=== PATIENT | male | born 1955 | race Caucasian/White ===

== ENCOUNTER 2017-01-22 12:53 | Emergency (ER) | payer BC ==
--- NOTE | 2017-01-22 13:51 | ER PHYSICIAN DOCUMENTATION ---
Physician Documentation [facility] Name:Abdirahman Sprague Age:61 yrs Sex:Male :1955 Arrival Date:01/22/2017 Time:12:53 Bed1 Private MD: Hal Ramirez Disposition: 01/22/17 13:44 Discharged to Home/Self Care. Impression: Acute Sinusitis. - Condition is Good. - Discharge Instructions: SINUSITIS, Abx Tx. - Prescriptions for Augmentin 875- 125 mg Oral - take 1 tablet by ORAL route every 12 hours for 14 days; 28 tablet. - Medical Reconciliation form form. - Follow up: Private Physician; When: As needed; Reason: Worsening of condition. - Problem is new. - Symptoms are unchanged. HPI: 01/22 13:42 This 61 yrs old Male presents to ER via Private Vehicle with complaints of sc Cough, Sinus Pain. 13:42 The patient or guardian reports cough, described as mild, with no sputum. Onset: The sc symptom(s)/episode began/occurred 3 week(s) ago. Severity of symptoms: At their worst the symptoms were moderate. Associated signs and symptoms: Pertinent positives: rhinorrhea. The patient has experienced similar episodes in the past, chronically, 3 sinus surgeries. Historical: - Allergies: No known drug Allergies; - Home Meds: 1. Simvastatin Oral 2. z-pack 3. Vitamin C Oral 4. Vitamin D Oral 5. Aspirin Oral 6. larantadine - PMHx: SINUSITIS; HIGH CHOLESTEROL; - Tetanus: < 10 years. - Ebola Screening: : Patient denies exposure to infectious person. Patient denies travel to an Ebola-affected area in the 21 days before illness onset. . - Social history: Smoking status: Patient states was never smoker of tobacco. Patient uses alcohol occasionally. Patient/guardian denies using marijuana. ROS: 13:43 Constitutional: Negative for fever, chills, and weight loss. sc Eyes: Negative for injury, pain, redness, and discharge. Cardiovascular: Negative for chest pain, palpitations, and edema. Back: Negative for injury and pain. Skin: Negative for injury, rash, and discoloration. 13:43 Neuro: Negative for headache, weakness, numbness, tingling, and seizure. sc 13:43 ENT: Positive for nasal discharge, sinus congestion, sinus pain. 13:43 Respiratory: Positive for cough. Exam: Constitutional: This is a well developed, well nourished patient who is awake, alert, and in no acute distress. 13:43 Eyes: Pupils equal round and reactive to light, extra-ocular motions intact. Lids and sc lashes normal. Conjunctiva and sclera are non-icteric and not injected. Cornea within normal limits. Periorbital areas with no swelling, redness, or edema. 13:43 ENT: Nose: nasal drainage, and is seen coming from both nares, that is purulent, Posterior pharynx: Tonsils: are normal in appearance, erythema, is not appreciated. 13:43 Respiratory: the patient does not display signs of respiratory distress, Respirations: normal, Breath sounds: are normal. 13:45 Neuro: Orientation: is normal. sc Vital Signs: 13:11 BP 122 / 82; Pulse 92; Resp 16; Temp 98.6; Pulse Ox 90% on R/A; st MDM: 13:28 Patient medically screened. sc 13:44 Differential Diagnosis: Sinusitis Viral Syndrome. Data reviewed: vital signs, nurses sc notes, and as a result, I will discharge patient. Counseling: I had a detailed discussion with the patient and/or guardian regarding: the historical points, exam findings, and any diagnostic results supporting the discharge/admit diagnosis, the need for outpatient follow up, to return to the emergency department if symptoms worsen or persist or if there are any questions or concerns that arise at home. 13:45 ED course: discussed sinus irrigatioins, resuming flonase, dental exam. sc Dispensed Medications: No medications were administered Signatures: Leonarda Juárez, RN Hal Bosotn MD MD az
--- NOTE | 2017-01-22 13:51 | ER NURSING DOCUMENTATION ---
Nurse's Notes [facility] Name:Abdirahman Sprague Age:61 yrs Sex:Male :1955 Arrival Date:01/22/2017 Time:12:53 Bed1 Private MD: Diagnosis:Acute Sinusitis Presentation: 01/22 13:05 Presenting complaint: Patient states: pt has left sided sinus pain. pt has a PRN RX for st a Z-pack to take for sinusitis and he started that however the pain keeps getting worst. Transition of care: Home. 13:05 Method Of Arrival: Private Vehicle st 13:05 Acuity: CONSTANCE 4 st 13:05 Notified ED Physician of Dr. Murphy notified. st Triage Assessment: 13:10 General: Appears in no apparent distress, Behavior is cooperative. Pain: Complains of st pain in left cheek and left jaw. EENT: Respiratory: Breath sounds are clear bilaterally. 13:12 Pain: Pain At worst was 8 out of 10 on a pain scale. Pain began 2-[address] Historical: - Allergies: No known drug Allergies; - Home Meds: 1. Simvastatin Oral 2. z-pack 3. Vitamin C Oral 4. Vitamin D Oral 5. Aspirin Oral 6. larantadine - PMHx: SINUSITIS; HIGH CHOLESTEROL; - Tetanus: < 10 years. - Ebola Screening: : Patient denies exposure to infectious person. Patient denies travel to an Ebola-affected area in the 21 days before illness onset. . - Social history: Smoking status: Patient states was never smoker of tobacco. Patient uses alcohol occasionally. Patient/guardian denies using marijuana. Screenin:12 Infectious Disease Risk None. Abuse screen: Denies threats or abuse. Denies injuries st from another. pt feels safe at home. Nutritional screening: No deficits noted. Vital Signs: 13:11 BP 122 / 82; Pulse 92; Resp 16; Temp 98.6; Pulse Ox 90% on R/A; st ED Course: 12:58 Patient arrived in ED. we 12:58 summer, RN is Primary Nurse. st 13:[address] 13:12 Valuables Remains with patient Patient has correct armband on for positive st identification. Bed in low position. 13:28 Hal Murphy MD is Attending Physician. sc Administered Medications: No medications were administered Outcome: 13:44 Discharge ordered by . az 13:50 Discharged to home ambulatory. 13:50 Condition: stable 13:50 Discharge instructions given to patient, Instructed on discharge instructions, follow up and referral plans. medication usage, Prescriptions given X 1. 13:50 Patient left the ED. 01/23 09:26 Discharge F/U Call: Unable to reach: no answer nf Signatures: Leonarda Juárez RN RN st Friel, Nicole, RN RN nf Chew, Scott, MD MD sc Elder, [place]on we
== END 2017-01-22 13:51 | disposition home or self-care (01) ==
LOC: ER 12:53
DX: J01.91 Acute recurrent sinusitis, unspecified (principal); R05 Cough; Z79.899 Other long term (current) drug therapy; Z79.82 Long term (current) use of aspirin
CPT/HCPCS: 99282